=== PATIENT | female | born 1990 ===

== ENCOUNTER 2018-07-28 05:11 | Observation (INO) | payer OTHER ==
[~2018-07-28] VITALS: Ht 170.2 cm; Wt 88.0 kg
[2018-07-28] MEDS ORDERED: IV RINGERS,LACTATED 1000ML 1,000 ML IV PRN (05:30)
[2018-07-28 05:43] LABS: BARBITURATES NEG (NEG); BENZODIAZEPINES NEG (NEG); CANNABINOIDS NEG (NEG); COCAINE NEG (NEG); METHADONE NEG (NEG); OPIATES NEG (NEG); PHENCYCLIDINE NEG (NEG)
[2018-07-28 05:50] LABS: AMPHETAMINE/METHAMPHETAMINE POS (NEG)
[2018-07-28 06:00] LABS: BILIRUBIN,URINE NEGATIVE (NEG); CLARITY,URINE CLEAR; COLOR,URINE YELLOW; NITRITE,URINE NEGATIVE (NEG); PROTEIN,URINE NEGATIVE (NEG-TRACE); UROBILINOGEN,URINE 0.2 mg/dL (0.2 mg/dL)
[2018-07-28 06:01] LABS: BACTERIA,URINE 0 /HPF (0-FEW); RBC,URINE 0 /HPF (0-2); SQUAMOUS EPITHELIAL CELL,UR FEW /LPF
--- NOTE | 2018-07-28 08:43 | RAD ---
Indication:NO CARE TECHNIQUE: Ultrasound OB limited. COMPARISON: None FINDINGS: Placenta is fundal in position. Single intrauterine seen in vertex presentation. Heart rate measures 152 bpm. Four-chamber heart seen. Amniotic fluid index measures 10.7 cm. The biparietal diameter measures 8.7 cm corresponding to gestation age of 35 weeks 1 day. Head circumference measures 32.1 cm corresponding to gestation age of 36 weeks 1 day. Abdominal circumference measures 32.8 cm corresponding to gestation age of 36 weeks 5 days. Femoral length measures 7.5 cm corresponding to gestation age of 38 weeks 3 days. movement seen. IMPRESSION: Single live viable intrauterine with estimated gestation age of 36 weeks 4 days and due date of 08/21/2018 Electronically signed by: Viraj Bishop DO (07/28/2018 8:39 AM) [facility]
--- NOTE | 2018-07-28 10:53 | RAD ---
AP and Lateral Views of the Chest 07/28/2018 9:52 AM Indication: CRACKLES, UPPER BACK PAIN Comparison: None available Findings: There is no focal consolidation or infiltrate identified. The cardiomediastinal silhouette is within normal limits. There is no evidence of pneumothorax or pleural effusion. No acute osseous abnormalities are identified. Impression: No evidence of acute cardiopulmonary process. Electronically signed by: Kobe Nunes MD (07/28/2018 10:49 AM) [id number]
[2018-07-28] MEDS ORDERED: ONDANSETRON PF 4 MG/2 ML VIAL. ONE (11:09)
[2018-07-28] MEDS ORDERED: ONDANSETRON PF 4 MG/2 ML VIAL. IM ONE (11:15)
[2018-07-28] MEDS: IV RINGERS,LACTATED 1000ML 1,000 ML IV SCH ×2 (11:25→18:28)
[2018-07-28] MEDS ORDERED: ONDANSETRON PF 4 MG/2 ML VIAL. IV ONE (11:30)
[2018-07-28] MEDS ORDERED: ACETAMINOPHEN 500 MG TABLET PO ONE (13:45)
--- NOTE | 2018-07-28 18:23 | EKG ---
[facility] [address] [place] [address] Test Date: 2018-07-28 Test Time: 19:13:10 Pat Name: KATE TERAN Department: Room: 387 1 Gender: F [employer] Supervisor: PATRICK : 1989-09-04 Requested By: CAROLE MENDEZ Order Number: [id number] Reading MD: Santhosh Cortez Measurements Intervals [place] Rate: 88 P: 60 NV: 126 QRS: 56 QRSD: 86 T: 25 QT: 362 QTc: 441 Interpretive Statements SINUS RHYTHM LEFT ATRIAL ABNORMALITY Electronically Signed On 08-02-2018 10:24:50 [employer] by Santhosh Cortez
[2018-07-28] MEDS ORDERED: ONDANSETRON PF 4 MG/2 ML VIAL. IV PRN (18:30)
[2018-07-28 18:48] LABS: BASO % 0 % (0-3); EOS % 0 % (0-3); HEMATOCRIT 35.1 % (36.0-47.0); HEMOGLOBIN 12.2 g/dL (12.0-15.5); LYMPH # 1.3 x10^3/uL (1.0-4.8); LYMPH % 17 % (24-48); MEAN CORPUSCULAR HEMOGLOBIN 31 pg (25-35); MEAN CORPUSCULAR HGB CONC 35 g/dL (31-37); MEAN CORPUSCULAR VOLUME 89 fL (79-100); MONO # 0.5 x10^3/uL (0.0-1.1); MONO % 6 % (0-9); NEUT % 76 % (31-73); PLATELET COUNT 178 x10^3/uL (140-400); RED BLOOD COUNT 3.93 x10^6/uL (3.50-5.40); RED CELL DISTRIBUTION WIDTH 15.1 % (11.5-14.5); WHITE BLOOD COUNT 7.8 x10^3/uL (4.0-11.0)
[2018-07-28 19:05] LABS: ALBUMIN 2.8 g/dL (3.4-5.0); ALBUMIN/GLOBULIN RATIO 0.6 (1.0-1.7); CALCIUM 9.2 mg/dL (8.5-10.1); CREATININE 0.7 mg/dL (0.6-1.0); GFR 120.6; POTASSIUM 3.6 mmol/L (3.5-5.1); TOTAL BILIRUBIN 0.5 mg/dL (0.2-1.0); TOTAL PROTEIN 7.3 g/dL (6.4-8.2)
[2018-07-28] MEDS: ACETAMINOPHEN 500 MG TABLET PO PRN (20:20)
[2018-07-29] MEDS: IV RINGERS,LACTATED 1000ML 1,000 ML IV SCH (02:07)
[2018-07-29] MEDS: ACETAMINOPHEN 500 MG TABLET PO PRN ×2 (05:48→12:17)
--- NOTE | 2018-07-29 10:19 | PDOC2 ---
CONSULT Date of Consult Date of Consult DATE: 07/29/18 TIME: 10:17 Reason for Consult Reason for Consult: vomiting, back pain, 37 wks Referring Physician Referring Physician: Dr. Gonzalez Identification/Chief Complaint Chief Complaint vomiting, back pain, 37 wks Source Source: Chart review, Patient History of Present Illness Reason for Visit: Ms Pearson is a 28yo female admitted for vomiting, back pain, 37 wks . She has just returned from [place] where she lives with her . She c/o shortness of breath and posterior, lateral and anterior right sided chest pain worse on deep inspiration. She notes a very long flight from [place] and worse bilateral LE swelling and shortness of breath after landing and came to the ED for further evaluation. She had negative CXR and normal US and had a UDS positive for amphetamine. She denies amphetamine use on repeated questioning, however does exhibit multiple skin wounds. On even further questioning she states, "anything happens in [place], someone probably gave me something, there's a lot of drug traffickers down there". She is asking for a diet currently and is visibly uncomfortable. She notes this is her 8th gestation and has had 7 prior vaginal births all with different PSYCHIATRIC REGISTERED NURSE. She states [facility] care [facility]. Notes all her gestations have been large 12lb and she always refuses OGT. Unknown prior DM diagnosis, but fasting glucose was 112 in ED. She has had no STI testing as of yet and refuses with me. Past Medical History Cardiovascular: No pertinent hx Pulmonary: No pertinent hx GI: No pertinent hx Heme/Onc: No pertinent hx Hepatobiliary: No pertinent hx Psych: No pertinent hx Rheumatologic: No pertinent hx Infectious disease: No pertinent hx ENT: No pertinent hx Renal/: No pertinent hx Endocrine: No pertinent hx Dermatology: No pertinent hx Grav: 8 Para: 7 Past Surgical History Past Surgical History: No pertinent history Family History Family History: Diabetes, Heart Disease, High Cholestrol Social History No ALCOHOL: none Drugs: None Lives: with Family Domestic Violence: Neg Current Medications Current Medications Current Medications Ringer's Solution 1,000 ml @ 125 mls/hr Q8H PRN IV PER PROTOCOL; Start at 05:30 Ondansetron HCl (Zofran) 8 mg 1X ONCE IM ; Start 07/28/18 at 11:15; Stop at 11:16; Status Cancel Ringer's Solution 1,000 ml @ 125 mls/hr Q8H IV Last administered on at 02:07; Start 07/28/18 at 11:15 Ondansetron HCl (Zofran) 8 mg 1X ONCE IV Last administered on 07/28/18at 11:26 ; Start 07/28/18 at 11:30; Stop 07/28/18 at 11:31; Status DC Ondansetron HCl (Zofran) 4 mg STK-MED ONCE .ROUTE ; Start 07/28/18 at 11:09; Stop 07/28/18 at 11:25; Status DC Acetaminophen (Tylenol) 1,000 mg 1X ONCE PO Last administered on 07/28/18at 14 :03; Start 07/28/18 at 13:45; Stop 07/28/18 at 13:46; Status DC Ondansetron HCl (Zofran) 4 mg PRN Q6HRS PRN IV NAUSEA/VOMITING Last administered on 07/28/18at 18:27; Start 07/28/18 at 18:30 Acetaminophen (Tylenol) 1,000 mg PRN Q6HRS PRN PO MODERATE PAIN Last administered on 07/29/18at 05:48; Start 07/28/18 at 19:30 Allergies Allergies: Coded Allergies: No Known Drug Allergies (Unverified , 07/28/18) ROS General: No: Chills, Night Sweats, Fatigue, Malaise, Appetite, Other PSYCHOLOGICAL ROS: YES: Irritablity; No: Anxiety, Behavioral Disorder, Concentration difficultie, Decreased libido , Depression, Disorientation, Hallucinations, Hostility, Memory difficulties, Mood Swings, Obsessive thoughts, Physical abuse, Sexual abuse, Sleep disturbances, Suicidal ideation, Other Eyes: No Blurry vision, No Decreased vision, No Double vision, No Dry eyes, No Excessive tearing, No Eye Pain, No Itchy Eyes, No Loss of vision, No Photophobia , No Scotomata, No Uses contacts, No Uses glasses, No Other HEENT: No: Heacaches, Visual Changes, Hearing change, Nasal congestion, Nasal discharge, Oral lesions, Sinus pain, Sore Throat, Epistaxis, Sneezing, Snoring, Tinnitus, Vertigo, Vocal changes, Other ALLERGY AND IMMUNOLOGY: No: Hives, Insect Bite Sensitivity, Itchy/Watery Eyes, Nasal Congestion, Post Nasal Drip, Seasonal Allergies, Other Hematological and Lymphatic: No: Bleeding Problems, Blood Clots, Blood Transfusions, Brusing, Night Sweats, Pallor, Swollen Lymph Nodes, Other ENDOCRINE: No: Breast Changes, Galactorrhea, Hair Pattern Changes, Hot Flashes , Malaise/lethargy, Mood Swings, Palpitations, Polydipsia/polyuria, Skin Changes , Temperature Intolerance, Unexpected Weight Changes, Other Breast: No New/Changing Breast Lumps, No Nipple changes, No Nipple discharge, No Other Respiratory: YES: Pleuritic Pain, Shortness of breath; No: Cough, Hemoptysis, Orthopnea, SOB with excertion, Sputum Changes, Stridor , Tachypnea, Wheezing, Other Cardiovascular: yes Chest Pain, yes Edema; No Palpitations, No Orthopnea, No Paroxysmal Noc. Dyspnea, No Lt Headedness, No Other Gastrointestinal: Yes Nausea; No Vomiting, No Abdominal Pain, No Diarrhea, No Constipation, No Melena, No Hematochezia, No Other Genitourinary: No Dysuria, No Frequency, No Incontinence, No Hematuria, No Retention, No Discharge, No Urgency, No Pain, No Flank Pain, No Other, No , No , No , No , No , No , No Musculoskeletal: No Gait Disturbance, No Joint Pain, No Joint Stiffness, No Joint Swelling, No Muscle Pain, No Muscular Weakness, No Pain In:, No Swelling In:, No Other Neurological: No Behavorial Changes, No Bowel/Bladder ControlChng, No Confusion , No Dizziness, No Gait Disturbance, No Headaches, No Impaired Coord/balance, No Memory Loss, No Numbness/Tingling, No Seizures, No Speech Problems, No Tremors, No Visual Changes, No Weakness, No Other Skin: No Dry Skin, No Eczema, No Hair Changes, No Lumps, No Mole Changes, No Mottling, No Nail Changes, No Pruritus, No Rash, No Skin Lesion Changes, No Other, No Acne Physical Exam General: Alert, Oriented X3, Cooperative, No acute distress HEENT: Atraumatic, PERRLA, EOMI, Mucous membr. moist/pink Lungs: Clear to auscultation, Normal air movement Heart: Regular rate, Normal S1, Normal S2, No murmurs Abdomen: Normal bowel sounds, No tenderness, No hepatosplenomegaly, Other ( distended abdomen, visible arms and legs of fetus spontaneously moving.) Extremities: No clubbing, No cyanosis, Normal pulses, No tenderness/swelling, Other (1+ edema) Skin: No rashes, No breakdown Neuro: Normal gait, Normal speech, Normal tone, Sensation intact, Reflexes 2+ Psych/Mental Status: Mental status NL, Mood NL MUSCULOSKELETAL: No joint tenderness Labs Labs Laboratory Tests Test 07/28/18 05:20 07/28/18 18:25 Urine Collection Type Unknown Urine Color Yellow Urine Clarity Clear Urine pH 7.0 Urine Specific [place] 1.010 Urine Protein Negative mg/dL (NEG-TRACE) Urine Glucose (UA) Negative mg/dL (NEG) Urine Ketones (Stick) Negative mg/dL (NEG) Urine Blood Negative (NEG) Urine Nitrite Negative (NEG) Urine Bilirubin Negative (NEG) Urine Urobilinogen Dipstick 0.2 mg/dL (0.2 mg/dL) Urine Leukocyte Esterase Trace (NEG) Urine RBC 0 /HPF (0-2) Urine WBC 1-4 /HPF (0-4) Urine Squamous Epithelial Cells Few /LPF Urine Bacteria 0 /HPF (0-FEW) Urine Mucus Slight /LPF Urine Opiates Screen Neg (NEG) Urine Methadone Screen Neg (NEG) Urine Barbiturates Neg (NEG) Urine Phencyclidine Screen Neg (NEG) Urine Amphetamine/Methamphetamine Pos (NEG) Urine Benzodiazepines Screen Neg (NEG) Urine Cocaine Screen Neg (NEG) Urine Cannabinoids Screen Neg (NEG) Urine Ethyl Alcohol Neg (NEG) White Blood Count 7.8 x10^3/uL (4.0-11.0) Red Blood Count 3.93 x10^6/uL (3.50-5.40) Hemoglobin 12.2 g/dL (12.0-15.5) Hematocrit 35.1 % (36.0-47.0) Mean Corpuscular Volume 89 fL (79-100) Mean Corpuscular Hemoglobin 31 pg (25-35) Mean Corpuscular Hemoglobin Concent 35 g/dL (31-37) Red Cell Distribution Width 15.1 % (11.5-14.5) Platelet Count 178 x10^3/uL (140-400) Neutrophils (%) (Auto) 76 % (31-73) Lymphocytes (%) (Auto) 17 % (24-48) Monocytes (%) (Auto) 6 % (0-9) Eosinophils (%) (Auto) 0 % (0-3) Basophils (%) (Auto) 0 % (0-3) Neutrophils # (Auto) 6.0 x10^3uL (1.8-7.7) Lymphocytes # (Auto) 1.3 x10^3/uL (1.0-4.8) Monocytes # (Auto) 0.5 x10^3/uL (0.0-1.1) Eosinophils # (Auto) 0.0 x10^3/uL (0.0-0.7) Basophils # (Auto) 0.0 x10^3/uL (0.0-0.2) Sodium Level 132 mmol/L (136-145) Potassium Level 3.6 mmol/L (3.5-5.1) Chloride Level 96 mmol/L (98-107) Carbon Dioxide Level 27 mmol/L (21-32) Anion Gap 9 (6-14) Blood Urea Nitrogen 7 mg/dL (7-20) Creatinine 0.7 mg/dL (0.6-1.0) Estimated GFR (Cockcroft-Gault) 120.6 BUN/Creatinine Ratio 10 (6-20) Glucose Level 112 mg/dL (70-99) Calcium Level 9.2 mg/dL (8.5-10.1) Total Bilirubin 0.5 mg/dL (0.2-1.0) Aspartate Amino Transf (AST/SGOT) 27 U/L (15-37) Alanine Aminotransferase (ALT/SGPT) 30 U/L (14-59) Alkaline Phosphatase 150 U/L (46-116) Total Protein 7.3 g/dL (6.4-8.2) Albumin 2.8 g/dL (3.4-5.0) Albumin/Globulin Ratio 0.6 (1.0-1.7) Laboratory Tests Test 07/28/18 18:25 White Blood Count 7.8 x10^3/uL (4.0-11.0) Red Blood Count 3.93 x10^6/uL (3.50-5.40) Hemoglobin 12.2 g/dL (12.0-15.5) Hematocrit 35.1 % (36.0-47.0) Mean Corpuscular Volume 89 fL (79-100) Mean Corpuscular Hemoglobin 31 pg (25-35) Mean Corpuscular Hemoglobin Concent 35 g/dL (31-37) Red Cell Distribution Width 15.1 % (11.5-14.5) Platelet Count 178 x10^3/uL (140-400) Neutrophils (%) (Auto) 76 % (31-73) Lymphocytes (%) (Auto) 17 % (24-48) Monocytes (%) (Auto) 6 % (0-9) Eosinophils (%) (Auto) 0 % (0-3) Basophils (%) (Auto) 0 % (0-3) Neutrophils # (Auto) 6.0 x10^3uL (1.8-7.7) Lymphocytes # (Auto) 1.3 x10^3/uL (1.0-4.8) Monocytes # (Auto) 0.5 x10^3/uL (0.0-1.1) Eosinophils # (Auto) 0.0 x10^3/uL (0.0-0.7) Basophils # (Auto) 0.0 x10^3/uL (0.0-0.2) Sodium Level 132 mmol/L (136-145) Potassium Level 3.6 mmol/L (3.5-5.1) Chloride Level 96 mmol/L (98-107) Carbon Dioxide Level 27 mmol/L (21-32) Anion Gap 9 (6-14) Blood Urea Nitrogen 7 mg/dL (7-20) Creatinine 0.7 mg/dL (0.6-1.0) Estimated GFR (Cockcroft-Gault) 120.6 BUN/Creatinine Ratio 10 (6-20) Glucose Level 112 mg/dL (70-99) Calcium Level 9.2 mg/dL (8.5-10.1) Total Bilirubin 0.5 mg/dL (0.2-1.0) Aspartate Amino Transf (AST/SGOT) 27 U/L (15-37) Alanine Aminotransferase (ALT/SGPT) 30 U/L (14-59) Alkaline Phosphatase 150 U/L (46-116) Total Protein 7.3 g/dL (6.4-8.2) Albumin 2.8 g/dL (3.4-5.0) Albumin/Globulin Ratio 0.6 (1.0-1.7) Images Images US - Single live viable intrauterine with estimated gestation age of 36 weeks 4 days and due date of 08/21/2018 CXR - No evidence of acute cardiopulmonary process. Assessment/Plan Assessment/Plan Vomiting - not currently - can take pyridoxine Back pain - will get d dimer with her SOB and chest pain, recent long flight. US bilateral lower extremities. I would hesitate to expose the fetus to CTPA level radiation and VQ scan is not a great exposure either, but there is a risk for PE in her. I will discuss with radiology after d dimer and US performed 37 wks - no care on file, will give ADA diet and encourage her to submit to STI panel Amphetamine positive UDS - she denies use, but states she may have been "accidentally dosed". Counseled in depth as she has 7 other children this puts her in a high risk situation FEN - ADA diet PPX - SCDs for now FULL CODE Inpatient for medical w/u for PE, will need procurement professional logistics services, she is not in labor, however she may be close. UGO ALTAMIRANO MD Jul 29, 2018 10:19
[2018-07-29] MEDS ORDERED: ACETAMINOPHEN 500 MG TABLET PO PRN (11:45)
[2018-07-29] MEDS ORDERED: LIDOCAINE (700MG/PATCH) PATCH. TD SCH (12:00)
--- NOTE | 2018-07-29 13:58 | PDOC1 ---
OB - History Hx of Present Care: None Ultrasounds: No ultrasounds Obstetrical Complications: None Medical Complications: Other (methamphetamine abuse) Past Family/Social History * Past Medical, Surgical, Family and Obstetric Histories reviewed from chart. Blood Type: Unknown Rubella: Unknown RPR/VDRL: Unknown GBS Status: Unknown HBsAG: Unknown OB - Chief Complaint & HPI Date of Admission: Date of Admission: Jul 28, 2018 at 05:11 Chief Complaint/History : 8 Para: 6 EGA: 37 Reason for admission: observation (nausea, vomiting, upper back pain and drug abuse) Admission Nurse Assessment Rev: Yes OB - Admission Exam Physical Exam HEENT: Normal Heart: Regular Rate, Normal S1, Normal S2 Lungs: Clear Abdomen: Gravid, Soft Extremities: Edema Reflexes: Normal Cervical Dilatation: 2cm Effacement: 50% Station: -3 Membranes: Intact Heart Rate: Normal Accelerations: Accelerations Present Decelerations: No decelerations Contractions on Admission: None Text A: 37 wks IUP with no PNC Amphetamine abuse back pain P: OBservation for IV hydration, treatment with antiemetics, NST and medicine consult for electrolyte imbalance. If all normal, then d/c home. CAROLE MENDEZ Jr, MD Jul 29, 2018 13:58
--- NOTE | 2018-07-29 15:04 | RAD ---
Ultrasound venous Doppler INDICATION: Bilateral LEG SWELLING TECHNIQUE: Grayscale, color Doppler and spectral waveform ultrasound images of the bilateral lower extremities deep veins obtained. COMPARISON: None FINDINGS: The interrogated deep veins are compressible and demonstrate evidence of blood flow with normal respiratory variation and response to augmentation. IMPRESSION: No sonographic evidence of acute DVT of the bilateral lower extremity deep veins. Electronically signed by: Viraj iBshop DO (07/29/2018 3:00 PM) [facility]
[2018-07-29] MEDS ORDERED: PATCH REMOVAL. MC SCH (21:00)
[2018-08-07] MEDS ORDERED: IBUP-1027 PO (09:05)
== END 2018-07-29 17:47 | disposition home or self-care (01) ==
LOC: EDBD 05:11 → 3 SO LND 05:11
PROVIDERS: ADMIT Obstetrics & Gynecology; ATTEND Obstetrics & Gynecology
DX: O21.2 Late vomiting of pregnancy (principal); O62.9 Abnormality of forces of labor, unspecified; O99.324 Drug use complicating childbirth; F15.10 Other stimulant abuse, uncomplicated; Z3A.37 37 weeks gestation of pregnancy; Z83.3 Family history of diabetes mellitus
CPT/HCPCS: 36415; 71046; 76815; 80053; 80307; 81001; 85025; 85379; 86592; 86703; 86762; 87086; 87340; 93005; 93970; 96361; 96374; 96375; 96376; G0378; G0379; J2405; J7120